=== PATIENT | male | born 1995 | race African-American/Black ===

== ENCOUNTER → 2024-01-10 | Outpatient (CLI) | payer OTHER | LOC: M RAD 11:07 | PROVIDERS: ATTEND Nurse Practitioner Family | DX: R10.11 Right upper quadrant pain (principal) ==

== ENCOUNTER 2024-02-06 11:59 | Day surgery (SDC) | payer OTHER ==
[~2024-02-06] VITALS: Ht 188 cm; Wt 101.2 kg
[~2024-02-06 11:59] MED LIST: CETI-24 PO; NS 250 ML IV ONE; OMEP-173 PO
[2024-02-06] MEDS ORDERED: propofoL 200 MG/20 ML VIAL As Ordered ONE (12:12)
[2024-02-06] MEDS ORDERED: LIDOCAINE 2% 100MG/5ML SDV (FOR ANES.) As Ordered ONE (12:12)
[2024-02-06 13:40] VITALS: TEMP 98
[2024-02-06 14:01] VITALS: BP 115/66; O2SAT 99
== END 2024-02-06 14:04 | disposition home or self-care (01) ==
LOC: M OPP 11:59 → EDUNIT# 12:30 → M OPP 14:04
PROVIDERS: ATTEND Internal Medicine Gastroenterology
DX: R13.10 Dysphagia, unspecified (principal); R12 Heartburn; K21.9 Gastro-esophageal reflux disease without esophagitis; G43.909 Migraine, unspecified, not intractable, without status migrainosus; Z79.899 Other long term (current) drug therapy